=== PATIENT | female | born 1965 | race Caucasian/White ===

== ENCOUNTER 2017-03-13 09:48 | Emergency (ER) | payer OTHER ==
--- NOTE | 2017-03-14 13:38 | EKG ---
Test Reason : TIGHT CHEST Blood Pressure : / mmHG Vent. Rate : 075 BPM Atrial Rate : 075 BPM P-R Int : 158 ms QRS Dur : 092 ms QT Int : 400 ms P-R-T Axes : 024 037 049 degrees QTc Int : 446 ms Normal sinus rhythm Normal ECG Confirmed by BRIEN DIAS, CHRISTIAN ([id number]), video editor KAYLEEN MARTINEZ ([id number]) on 03/14/2017 1:38:07 PM Referred By: Confirmed By:CHRISTIAN TESFAYE MD
== END 2017-03-13 11:10 | disposition home or self-care (01) ==
LOC: ERS 09:48
DX: J11.1 Influenza due to unidentified influenza virus with other respiratory manifestations (principal); F41.9 Anxiety disorder, unspecified; F41.0 Panic disorder [episodic paroxysmal anxiety]; F17.210 Nicotine dependence, cigarettes, uncomplicated
CPT/HCPCS: 93005

== ENCOUNTER 2017-03-29 11:02 | Outpatient (CLI) | payer OTHER | END 2017-03-29 11:03 | disposition home or self-care (01) | LOC: BICULT 11:02 | DX: M79.601 Pain in right arm (principal) ==